=== PATIENT | female | born 1990 | race Two or more races ===

== ENCOUNTER 2017-08-07 03:13 | Emergency (ER) | payer OTHER ==
[2017-08-07 03:39] VITALS: BP 130/80; PULSE 83; TEMP 98.4; BMI 34.1
--- NOTE | 2017-08-07 04:22 | PDOC ---
History of Present Illness - General Chief Complaint: Pain Stated Complaint: STOMACH PAIN/BACK PAIN Time Seen by Provider: 08/07/17 04:20 History Source: Patient - History of Present Illness Initial Comments: 08/07/17 04:58 27-year-old Complaining of left flank pain radiating down suprapubic tenderness , mild dysuria since 8 PM last night. Denies fever/chills/nausea/vomiting/ diarrhea, vaginal discharge. Past History - Past Medical History Allergies/Adverse Reactions: Allergies Allergy/AdvReac Type Severity Reaction Status Date / Time No Known Allergies Allergy Verified 09/20/15 22:00 Home Medications: Ambulatory Orders Sulfamethoxazole/Trimethoprim [Bactrim Ds -] 1 tab PO BID #14 tablet 08/07/17 Asthma: No Cancer: No Cardiac Disorders: No COPD: No Diabetes: No HTN: No Seizures: No Thyroid Disease: No - Immunization History Immunization Up to Date: Yes - Suicide/Smoking/Psychosocial Hx Smoking History: Never smoked Have you smoked in the past 12 months: No Information on smoking cessation initiated: No Hx Alcohol Use: Yes Drug/Substance Use Hx: No Substance Use Type: None Hx Substance Use Treatment: No Review of Systems - Review of Systems Able to Perform ROS?: Yes Is the patient limited French proficient: No Constitutional: No: Symptoms Reported, See HPI, Chills, Diaphoresis, Fever, Loss of Appetite, Malaise, Night Sweats, Weakness, Weight Stable, Unintentional Wgt. Loss, Unexplained wgt Loss, Other ABD/GI: Yes: Abdominal cramping (suprapubic tenderness). No: Symptoms Reported , See HPI, Abdominal Distended, Abd. Pain w/ defecation, Blood Streaked Bowels, Constipated, Diarrhea, Difficulty Swallowing, Nausea, Poor Appetite, Poor Fluid Intake, Rectal Bleeding, Vomiting, Indigestion, Tarry Stools, Other : Yes: Dysuria, Flank Pain Neurological: No: Symptoms reported, See HPI, Headache, Numbness, Paresthesia, Pre-Existing Deficit, Seizure, Tingling, Tremors, Weakness, Unsteady Gait, Ataxia, Dizziness, Other *Physical Exam - Vital Signs Last Vital Signs Temp Pulse Resp BP Pulse Ox 98.4 F 83 17 130/80 98 08/07/17 03:37 08/07/17 03:37 08/07/17 03:37 08/07/17 03:37 08/07/17 03:37 - Physical Exam General Appearance: Yes: Appropriately Dressed Respiratory/Chest: positive: Lungs Clear, Normal Breath Sounds Gastrointestinal/Abdominal: positive: Normal Bowel Sounds, Tender (suprapubic), Soft Musculoskeletal: positive: Normal Inspection, CVA Tenderness (L) Extremity: positive: Normal Capillary Refill, Normal Inspection, Normal Range of Motion Integumentary: positive: Normal Color, Dry, Warm Neurologic: positive: Fully Oriented, Alert, Normal Mood/Affect Progress Note - Progress Note Progress Note: pyelonephritis *DC/Admit/Observation/Transfer Diagnosis at time of Disposition: Pyelonephritis - Discharge Dispostion Disposition: HOME - Prescriptions Prescriptions: Sulfamethoxazole/Trimethoprim [Bactrim Ds -] 1 tab PO BID #14 tablet - Referrals Referrals: Alexandro Hanson MD [Primary Care Provider] - - Patient Instructions Printed Discharge Instructions: DI for Kidney Infection Additional Instructions: drink plenty of fluids. take bactrim as prescribed, follow up with your doctor as soon as possible. return to the ER if symptoms worsen. - Post Discharge Activity Forms/Work/School Notes: Back to Work
[2017-08-07 04:49] LABS: URINE APPEARANCE CLEAR; URINE BILIRUBIN NEGATIVE (NEGATIVE); URINE BLOOD NEGATIVE (NEGATIVE); URINE COLOR STRAW; URINE GLUCOSE (UA) NEGATIVE (NEGATIVE); URINE KETONE NEGATIVE (NEGATIVE); URINE NITRITE NEGATIVE (NEGATIVE); URINE PROTEIN NEGATIVE (NEGATIVE); URINE UROBILINOGEN NEGATIVE mg/dL (0.2-1.0)
[2017-08-07 04:50] LABS: HCG,QUALITATIVE URINE NEGATIVE
[2017-08-07 04:51] LABS: URINE LEUK ESTERASE 2+ (NEGATIVE)
[2017-08-07 04:52] LABS: EPI CELLS RARE /HPF (FEW); URINE BACTERIA FEW /hpf (NONE SEEN)
[2017-08-07] MEDS ORDERED: SULFAMETHOXAZOLE/TRIMETHOPRIM 800MG/160MG D.S. TABLET PO ONE (05:01)
[2017-08-07] MEDS ORDERED: ACETAMINOPHEN 325 MG TABLET (FP) PO ONE (05:02)
[2017-08-07] MEDS ORDERED: SULFAMETHOXAZOLE/TRIMETHOPRIM 800MG/160MG D.S. TABLET ONE (05:12)
[2017-08-07] MEDS ORDERED: ACETAMINOPHEN 325 MG TABLET (FP) ONE (05:12)
== END 2017-08-07 05:18 | disposition home or self-care (01) ==
LOC: JER 03:13
DX: N12 Tubulo-interstitial nephritis, not specified as acute or chronic (principal)
CPT/HCPCS: 81003; 81015; 84703; 87086; 99282-25

== ENCOUNTER 2017-08-28 05:41 | Emergency (ER) | payer OTHER ==
[2017-08-28 05:45] VITALS: TEMP 98.5; BMI 34.9
[2017-08-28] MEDS ORDERED: SODIUM CHLORIDE 1,000 ML IV STA (05:48)
[2017-08-28] MEDS ORDERED: morphine CARPU-JECT 4 MG/1 ML DISP.SYRIN IVPUSH ONE (05:48)
--- NOTE | 2017-08-28 05:52 | PDOC ---
History of Present Illness - General Chief Complaint: Pain, Acute Stated Complaint: L+R FLANK PAIN Time Seen by Provider: 08/28/17 05:47 History Source: Patient Exam Limitations: No Limitations - History of Present Illness Initial Comments: 08/28/17 05:47 <0 cause a 27-year-old female with no significant past medical history who presents emergency department with a complaint of left flank pain. Patient states her symptoms began at approximately 8 PM last night. She took Tylenol and Motrin FOR her pain, with no relief. She states her pain is located in the left back and radiates to her left lower abdomen. She describes her pain as pounding, states the pain is basically constant rates the pain 10/10, worse with standing straight up or laying down on her back. She's has had pain like this before But states the pain was not as severe, and went away after a few hours. At that time her urine was dark orange. Currently she denies fevers, reports some chills. She has been nauseous, and vomited 2 (nonbloody, nonbilious) No diarrhea. No hematuria. She has noted dysuria.. Urine is not cloudy or foul-smelling. Medical history: Denies Past surgical history: Denies Medication: Denies ALLERGIES: Denies Sensitivities to narcotics: Denies Social: Works as a cook, denies alcohol, drug, cigarette use. Primary care physician: Unknown August 07 GENERAL/CONSTITUTIONAL: Yes: chills No: fever, weakness, loss of appetite. HEAD, EYES, EARS, NOSE AND THROAT: No: change in vision, ear pain, discharge, sore throat, throat swelling. CARDIOVASCULAR: No: chest pain, lightheadedness, palpitations, syncope RESPIRATORY: No: cough, shortness of breath, wheezing, hemoptysis, stridor. GASTROINTESTINAL: No: nausea, vomiting, diarrhea, abdominal cramping, rectal bleeding, constipation. GENITOURINARY: Yes: dysuria, flank pain No: hematuria, frequency, urgency MUSCULOSKELETAL: Yes: left flank pain No: back pain, neck pain, joint pain, muscle swelling or pain SKIN: No: lesions, pallor, rash or easy bruising. NEUROLOGIC: No: headache, vertigo, paresthesias, weakness GENERAL: The patient is in no acute distress, appears uncomfortable. HEAD: Normal EYES: PERRLA, EOMI, sclera anicteric, conjunctiva clear. ENT: Ears normal, nares patent, oropharynx clear without exudates. Moist mucous membranes. NECK: Normal range of motion, supple without lymphadenopathy, JVD, or masses. LUNGS: Breath sounds equal, clear to auscultation bilaterally. No wheezes, and no crackles. HEART:Regular rate and rhythm, normal S1 and S2 without murmur, rub or gallop. ABDOMEN: Soft, Left sided tenderness to palpation, No CVA tenderness, no guarding or rebound EXTREMITIES: Normal range of motion, no edema NEUROLOGICAL: Cranial nerves II through XII grossly intact. Normal speech. No focal neurological deficits. MUSCULOSKELETAL: No Left CVA tenderness, no midline back non-tender to palpation SKIN: Warm, Dry, normal turgor, no rashes or lesions noted. . 08/28/17 05:49 08/28/17 05:52 Past History - Past Medical History Allergies/Adverse Reactions: Allergies Allergy/AdvReac Type Severity Reaction Status Date / Time No Known Allergies Allergy Verified 09/20/15 22:00 Home Medications: Ambulatory Orders Sulfamethoxazole/Trimethoprim [Bactrim Ds -] 1 tab PO BID #14 tablet 08/07/17 Asthma: No Cancer: No Cardiac Disorders: No COPD: No Diabetes: No HTN: No Seizures: No Thyroid Disease: No - Immunization History Immunization Up to Date: Yes - Suicide/Smoking/Psychosocial Hx Smoking History: Never smoked Have you smoked in the past 12 months: No Number of Cigarettes Smoked Daily: 0 Information on smoking cessation initiated: No Hx Alcohol Use: No Drug/Substance Use Hx: No Substance Use Type: None Hx Substance Use Treatment: No *Physical Exam - Vital Signs Last Vital Signs Temp Pulse Resp BP Pulse Ox 98.5 F 82 14 134/70 100 08/28/17 05:42 08/28/17 05:42 08/28/17 05:42 08/28/17 05:42 08/28/17 05:42 ED Treatment Course - LABORATORY CBC & Chemistry Diagram: 08/28/17 05:50 08/28/17 05:50 Medical Decision Making - Medical Decision Making 08/28/17 05:54 Ms Bora Ivory presenting to emergency department with a complaint of left flank pain. Her history significant for pain that began in her back, now located in the lower abdomen. She has a prior history of a similar episode which self resolved which raises the possibility of a prior stone that passed Definitive diagnosis includes but is not limited to: Musculoskeletal pain, pyelonephritis, obstructive uropathy, renal infarct Will do: Labs UA, urine culture IV hydration Analgesia CT of the abdomen and pelvis Reassess 08/28/17 05:57 Pt re assessed Pt now states she also has right side pain Her pain is located in the midline lower back This raises the possibility that this is related to musculoskeletal pain rather than kidney stones Pending all studies 08/28/17 05:59 08/28/17 06:26 Laboratory Tests 08/28/17 08/28/17 05:50 05:50 WBC 8.1 D Hgb 13.0 D Hct 38.4 D Plt Count 248 D Urine Ketones Negative Urine Blood Negative Urine Nitrite Negative Ur Leukocyte Esterase 3+ H 08/28/17 06:28 Laboratory Tests 08/28/17 05:50 Urine HCG, Qual Negative 08/28/17 06:40 Laboratory Tests 08/28/17 05:50 Ur Leukocyte Esterase 3+ H Urine WBC (Auto) 62 Urine RBC (Auto) 1 Ur Epithelial Cells Moderate Possibly pyelonephritis Definitely UTI Will discharge on cefpodoxime and Probiotic 08/28/17 06:44 08/28/17 07:02 Update: pt states that she was seen in the hospital 2 months ago Told she had a kidney infection Was started on abx not admitted followed up with her PMD Had US results pending states she can not continue with this pain Will change to ct with iv contrast *DC/Admit/Observation/Transfer - Discharge Dispostion Condition at time of disposition: Good - Referrals - Patient Instructions - Post Discharge Activity
[2017-08-28] MEDS ORDERED: morphine SULFATE 4 MG/ML VIAL ONE (05:58)
[2017-08-28 06:21] LABS: BASO % 0.5 % (0-2.0); HEMATOCRIT 38.4 % (32.4-45.2); LYMPH % 32.6 % (8-40); MCH 31.4 pg (25.7-33.7); MCHC 33.9 g/dl (32.0-36.0); MEAN CELL VOLUME 92.6 fl (80-96); MEAN PLT VOLUME 8.5 fl (7.5-11.1); MONO % 5.1 % (3.8-10.2); NEUT % 56.8 % (42.8-82.8); PLATELET COUNT 248 K/MM3 (134-434); RBC 4.14 M/mm3 (3.60-5.2); RDW 12.7 % (11.6-15.6); WHITE BLOOD COUNT 8.1 K/mm3 (4.0-10.0)
[2017-08-28 06:22] LABS: URINE APPEARANCE CLEAR; URINE BILIRUBIN NEGATIVE (NEGATIVE); URINE BLOOD NEGATIVE (NEGATIVE); URINE COLOR YELLOW; URINE GLUCOSE (UA) NEGATIVE (NEGATIVE); URINE KETONE NEGATIVE (NEGATIVE); URINE NITRITE NEGATIVE (NEGATIVE); URINE PROTEIN NEGATIVE (NEGATIVE); URINE UROBILINOGEN NEGATIVE mg/dL (0.2-1.0)
[2017-08-28 06:23] LABS: URINE LEUK ESTERASE 3+ (NEGATIVE)
[2017-08-28 06:26] LABS: HCG,QUALITATIVE URINE NEGATIVE
[2017-08-28 06:30] LABS: EPI CELLS MODERATE /HPF (FEW); URINE BACTERIA RARE /hpf (NONE SEEN); URINE MUCUS RARE
[2017-08-28] MEDS ORDERED: CEFTRIAXONE 1 GM in DEXTROSE 5%-WATER - 50 ML IVPB ONE (06:43)
[2017-08-28] MEDS ORDERED: cefTRIAXone SODIUM 1 GM VIAL ONE (07:01)
[2017-08-28 07:09] LABS: ALBUMIN 3.8 g/dl (3.4-5.0); ANION GAP 11 (8-16); BLOOD UREA NITROGEN 16 mg/dL (7-18); CALCIUM 8.6 mg/dL (8.5-10.1); CHLORIDE 104 mmol/L (98-107); CO2 25 mmol/L (21-32); CREATININE 0.6 mg/dL (0.55-1.02); GLUCOSE,RANDOM 101 mg/dL (74-106); POTASSIUM 3.9 mmol/L (3.5-5.1); SGOT/AST 16 U/L (15-37); SGPT/ALT 29 U/L (12-78); SODIUM 140 mmol/L (136-145)
[2017-08-28 07:11] LABS: ALK PHOS 65 U/L (45-117); BILIRUBIN,TOTAL 0.3 mg/dL (0.2-1.0); TOT PROT 7.9 g/dl (6.4-8.2)
--- NOTE | 2017-08-28 10:01 | PDOC ---
*Physical Exam - Vital Signs Last Vital Signs Temp Pulse Resp BP Pulse Ox 98.5 F 82 14 134/70 100 08/28/17 05:42 08/28/17 05:42 08/28/17 05:42 08/28/17 05:42 08/28/17 05:42 - Physical Exam Comments: 08/28/17 09:55 GENERAL: Awake, alert, and fully oriented, in no acute distress HEAD: No signs of trauma EYES: PERRLA, EOMI, sclera anicteric, conjunctiva clear ENT: Auricles normal inspection, hearing grossly normal, nares patent, oropharynx clear without exudates. Moist mucosa NECK: Normal ROM, supple, no lymphadenopathy, JVD, or masses LUNGS: Breath sounds equal, clear to auscultation bilaterally. No wheezes, and no crackles HEART: Regular rate and rhythm, normal S1 and S2, no murmurs, rubs or gallops ABDOMEN: Soft, nontender, normoactive bowel sounds. -morgan's sign. No guarding , no rebound. No masses. No CVAT. EXTREMITIES: Normal range of motion, no edema. No clubbing or cyanosis. No cords, erythema, or tenderness NEUROLOGICAL: Normal speech, cranial nerves intact, negative pronator drift, 5/ 5 strength in all 4 extremities, normal sensation to light touch in all 4 extremities, normal cerebellar exam, normal gait, normal reflexes and tone SKIN: Warm, Dry, normal turgor, no rashes or lesions noted. ED Treatment Course - LABORATORY CBC & Chemistry Diagram: 08/28/17 05:50 08/28/17 05:50 - ADDITIONAL ORDERS Additional order review: Laboratory Results 08/28/17 08/28/17 05:50 05:50 Sodium 140 Potassium 3.9 Chloride 104 Carbon Dioxide 25 Anion Gap 11 BUN 16 Creatinine 0.6 Creat Clearance w eGFR > 60 Random Glucose 101 Calcium 8.6 Total Bilirubin 0.3 D AST 16 ALT 29 Alkaline Phosphatase 65 Total Protein 7.9 Albumin 3.8 Urine Color Yellow Urine Appearance Clear Urine pH 6.0 Ur Specific [place] 1.023 Urine Protein Negative Urine Glucose (UA) Negative Urine Ketones Negative Urine Blood Negative Urine Nitrite Negative Urine Bilirubin Negative Urine Urobilinogen Negative Ur Leukocyte Esterase 3+ H Urine WBC (Auto) 62 Urine RBC (Auto) 1 Ur Epithelial Cells Moderate Urine Bacteria Rare Urine Mucus Rare Urine HCG, Qual Negative 08/28/17 05:50 RBC 4.14 D MCV 92.6 MCHC 33.9 RDW 12.7 MPV 8.5 Neutrophils % 56.8 Lymphocytes % 32.6 D Monocytes % 5.1 Eosinophils % 5.0 H D Basophils % 0.5 - Medications Given in the ED: ED Medications Discontinued Medications Generic Name Dose Route Start Last Admin Trade Name Clyde PRN Reason Stop Dose Admin Sodium Chloride 1,000 mls @ 1,000 mls/hr 08/28/17 05:48 08/28/17 05:55 Normal Saline - IV 08/28/17 06:47 1,000 mls/hr ASDIR STA Administration Ceftriaxone Sodium 1 gm/ 50 mls @ 100 mls/hr 08/28/17 06:43 08/28/17 07:01 Dextrose IVPB 08/28/17 07:12 100 mls/hr ONCE ONE Administration Morphine Sulfate 4 mg 08/28/17 05:48 08/28/17 05:55 Morphine Injection - IVPUSH 08/28/17 05:49 4 mg ONCE ONE Administration Medical Decision Making - Medical Decision Making 08/28/17 10:21 Care received at 0 700 Briefly patient presents to the emergency Department with bilateral flank pain. Labs unrevealing. Urinalysis with evidence of infection. On repeat exam, patient with no CVA tenderness but reports intermittent bilateral flank pain and dysuria. CT reveals evidence of mild pyelonephritis. Patient recently completed a course of Bactrim, will treat with Levaquin for more broad coverage. Results discussed with patient and recommended follow-up with primary doctor in 1-2 days. Return precautions were also given. Patient feels well, tolerating PO with normal vitals, and requests discharge home. I discussed the physical exam findings, ancillary test results and final diagnoses with the patient. I answered all of the patient's questions. The patient was satisfied with the care received and felt comfortable with the discharge plan and treatment plan. The patient will call their primary care physician within 24 hours to arrange follow-up and will return to the Emergency Department with any new, persistent or worsening symptoms. *DC/Admit/Observation/Transfer Diagnosis at time of Disposition: Pyelonephritis - Discharge Dispostion Disposition: HOME Condition at time of disposition: Good Admit: No - Referrals - Patient Instructions Printed Discharge Instructions: DI for Kidney Infection Additional Instructions: Follow-up with your primary doctor within 1-2 days. Take the antibiotics as prescribed. Return to the emergency department if you have any new, worsening or concerning symptoms. - Post Discharge Activity - Attestations Physician Attestion: 08/28/17 10:26 I, Dr. Leroy Le MD, attest that this document has been prepared under my direction and personally reviewed by me in its entirety. I further attest, that it accurately reflects all work, treatment, procedures and medical decision -making performed by me.
[2017-08-28 10:33] VITALS: BP 128/68; PULSE 73
== END 2017-08-28 10:38 | disposition home or self-care (01) ==
LOC: FER 05:41
PROC: 3E03329 Introduction of Other Anti-infective into Peripheral Vein, Percutaneous Approach (ICD-10-PCS; principal; 2017-08-28)
PROC: 3E033NZ Introduction of Analgesics, Hypnotics, Sedatives into Peripheral Vein, Percutaneous Approach (ICD-10-PCS; 2017-08-28)
PROC: 3E0337Z Introduction of Electrolytic and Water Balance Substance into Peripheral Vein, Percutaneous Approach (ICD-10-PCS; 2017-08-28)
DX: N12 Tubulo-interstitial nephritis, not specified as acute or chronic (principal)
CPT/HCPCS: 36415; 74177-TC; 80053; 81003; 81015; 84703; 85025; 87086; 99283-25; J7030

== ENCOUNTER 2017-11-13 14:38 | Emergency (ER) | payer OTHER ==
[2017-11-13 14:55] VITALS: BP 131/66; PULSE 80; TEMP 98.6; BMI 35.1
--- NOTE | 2017-11-13 16:41 | PDOC ---
History of Present Illness - General Chief Complaint: Pain Stated Complaint: LEFT NECK PAIN Time Seen by Provider: 11/13/17 16:41 - History of Present Illness Initial Comments: 11/13/17 17:00 27-year-old female with no significant past medical history presents emergency Department with left sided neck pain. Patient states he feels like she slept the wrong way. Pain is worse when he turns her head to the left or right. She has tried Tylenol and Motrin for pain control with minimal relief. She is also try to have her mom massaged her neck also with minimal relief. Denies any numbness or tingling or weakness down the left upper extremity. Denies headache. Denies any trauma. Otherwise, patient has been in her usual state of good health, denies fevers or chills, chest pain, shortness of breath, abdominal pain. Past History - Past Medical History Allergies/Adverse Reactions: Allergies Allergy/AdvReac Type Severity Reaction Status Date / Time No Known Allergies Allergy Verified 11/13/17 15:05 Home Medications: Ambulatory Orders Ibuprofen [Motrin -] mg PO ASDIR 11/13/17 Asthma: No Cancer: No Cardiac Disorders: No COPD: No Diabetes: No HTN: No Seizures: No Thyroid Disease: No Other medical history: PT DENIES - Immunization History Immunization Up to Date: Yes - Suicide/Smoking/Psychosocial Hx Smoking History: Never smoked Have you smoked in the past 12 months: No Number of Cigarettes Smoked Daily: 0 Hx Alcohol Use: No Drug/Substance Use Hx: No Substance Use Type: None Hx Substance Use Treatment: No Review of Systems - Review of Systems Comments:: 11/13/17 17:02 GENERAL/CONSTITUTIONAL: No fever or chills. No weakness. HEAD, EYES, EARS, NOSE AND THROAT: No change in vision. No ear pain or discharge. No sore throat. GASTROINTESTINAL: No nausea, vomiting, diarrhea or constipation. GENITOURINARY: No dysuria, frequency, or change in urination. CARDIOVASCULAR: No chest pain or shortness of breath. RESPIRATORY: No cough, wheezing, or hemoptysis. MUSCULOSKELETAL: No joint or muscle swelling or pain. +neck pain, no back pain. SKIN: No rash NEUROLOGIC: No headache, vertigo, loss of consciousness, or change in strength/ sensation. ENDOCRINE: No increased thirst. No abnormal weight change. HEMATOLOGIC/LYMPHATIC: No anemia, easy bleeding, or history of blood clots. ALLERGIC/IMMUNOLOGIC: No hives or skin allergy. *Physical Exam - Vital Signs Last Vital Signs Temp Pulse Resp BP Pulse Ox 98.6 F 80 18 131/66 100 11/13/17 14:38 11/13/17 14:38 11/13/17 14:38 11/13/17 14:38 11/13/17 14:38 - Physical Exam Comments: 11/13/17 17:02 GENERAL: Awake, alert, and fully oriented, in no acute distress HEAD: No signs of trauma EYES: PERRLA, EOMI, sclera anicteric, conjunctiva clear ENT: Auricles normal inspection, hearing grossly normal, nares patent, oropharynx clear without exudates. Moist mucosa NECK: Normal ROM, limited by pain, +ttp to L trapezius. BACK: No midline cervical, thoracic, or lumbar ttp. LUNGS: Breath sounds equal, clear to auscultation bilaterally. No wheezes, and no crackles HEART: Regular rate and rhythm, normal S1 and S2, no murmurs, rubs or gallops ABDOMEN: Soft, nontender, normoactive bowel sounds. No guarding, no rebound. No masses EXTREMITIES: Normal range of motion, no edema. No clubbing or cyanosis. No cords, erythema, or tenderness NEUROLOGICAL: Normal speech, cranial nerves intact, negative pronator drift, 5/ 5 strength in all 4 extremities, normal sensation to light touch in all 4 extremities, normal cerebellar exam, normal gait, normal reflexes and tone SKIN: Warm, Dry, normal turgor, no rashes or lesions noted. ED Treatment Course - ADDITIONAL ORDERS Additional order review: Laboratory Results 11/13/17 15:40 Urine HCG, Qual Negative Medical Decision Making - Medical Decision Making 11/13/17 17:05 27-year-old female presents emergency Department with a sided neck pain. On exam , patient has muscular tenderness to palpation over the left trapezius. Pt is neuro intact in all extremities. Likely muscle strain. Pt will be driving home and thus will hold off on muscle relaxers in ED and send prescription to pharmacy. Pt in agreement with plan and requests DC home. I discussed the physical exam findings, ancillary test results and final diagnoses with the patient. I answered all of the patient's questions. The patient was satisfied with the care received and felt comfortable with the discharge plan and treatment plan. The patient will call their primary care physician within 24 hours to arrange follow-up and will return to the Emergency Department with any new, persistent or worsening symptoms. *DC/Admit/Observation/Transfer Diagnosis at time of Disposition: Neck pain on left side - Discharge Dispostion Disposition: HOME Condition at time of disposition: Stable Decision to Admit order: No - Referrals - Patient Instructions Printed Discharge Instructions: DI for Cervical Muscle Strain Additional Instructions: Take naproxen every 12 hours as needed for pain. Do not take aleve, ibuprofen, or motrin when you are taking naproxen. Take the muscle relaxer (flexeril) as needed twice a day, but do not drive or operate machinery as the muscle relaxer can make you dizzy or drowsy. Return to the emergency department if you have a new, worsening or concerning symptoms. See you primary doctor within 1 wee - Post Discharge Activity - Attestations Physician Attestion: 11/13/17 17:13 I, Dr. Leroy Le MD, attest that this document has been prepared under my direction and personally reviewed by me in its entirety. I further attest, that it accurately reflects all work, treatment, procedures and medical decision -making performed by me.
[2017-11-13] MEDS ORDERED: KETOROLAC TROMETHAMINE 30 MG/1 ML VIAL ONE (17:01)
== END 2017-11-13 17:20 | disposition home or self-care (01) ==
LOC: FER 14:38
DX: M54.2 Cervicalgia (principal)
CPT/HCPCS: 84703; 99283-25